=== PATIENT | male | born 1975 | race American Indian/Alaskan Native ===

== ENCOUNTER 2018-04-05 08:25 | Day surgery (SDC) | payer OTHER ==
[2018-04-05 09:19] LABS: BASO % 0.3 % (0.0-2.0); EOS # 0.1 K/uL (0.0-0.7); EOS % 2.5 % (0.0-4.0); HEMOGLOBIN 10.4 g/dL (12.0-18.0); LYMPH % 24.4 % (20.0-40.0); MEAN CELL VOLUME 79.1 fL (80.0-94.0); MEAN CORPUSCULAR HGB CONC 34.1 g/dL (33.0-37.0); MONO # 0.6 K/uL (0.0-0.8); MONO % 14.8 % (0.0-10.0); NEUT # 2.4 K/uL (1.8-7.0); NRBC % 0.1 % (0.0-2.0); RBC 3.87 Mil/uL (4.40-5.90); RED CELL DISTRIBUTION WIDTH 17.4 % (11.5-14.5); WHITE BLOOD COUNT 4.1 K/uL (4.8-10.8)
[2018-04-05 09:27] LABS: INR 1.2; PROTHROMBIN TIME 12.9 SECONDS (9.7-12.2)
[2018-04-05 09:40] LABS: CALCIUM 9.1 mg/dl (8.6-10.4)
[2018-04-05] MEDS ORDERED: Lidocaine 2% MPF (5 ml) Inj ONE ×2 (10:33)
[2018-04-05] MEDS ORDERED: Midazolam 2 MG/2 ML VIAL ONE (10:39)
[2018-04-05] MEDS ORDERED: Iodixanol 320 MG/ML 200 ML BOTTLE IV ONE (10:40)
[2018-04-05] MEDS ORDERED: Iodixanol 320 MG/ML 100 ML BOTTLE IV ONE (10:40)
[2018-04-07 12:55] VITALS: RESP 14; O2SAT 100
--- NOTE | 2018-04-10 23:30 | CARDCATH ---
Copied To: Geo Souza MD Attending MD: Geo Souza MD PROCEDURE DATE: 04/05/2018 PROCEDURES: 1. Left heart catheterization. 2. Coronary angiogram. CLINICAL INDICATIONS: 1. Angina. 2. Abnormal stress test. 3. Hypertension. 4. Hyperlipidemia. 5. Diabetes. 6. Chronic kidney disease, on hemodialysis. PERFORMING PHYSICIAN: Geo Souza MD DESCRIPTION OF PROCEDURE: After informed consent, the patient was prepped and draped in the usual sterile fashion. A 2% Lidocaine was given in the right groin for local anesthesia. Using micropuncture technique, a 6-Tunisian sheath was introduced into the right common femoral artery. JR4 6-Tunisian diagnostic catheter crossed into the left ventricle across the aortic valve. LV and diastolic pressure measured. Contrast injected and LV angiogram was done. Then the catheter was pulled back across the aortic valve. Gradient across the aortic valve was measured. Then the same catheter engaged into right coronary artery. Contrast injected and right coronary angiogram was done. Then the catheter was exchanged to JL4 6-Tunisian diagnostic catheter. The catheter was engaged into left main coronary artery. Contrast injected and left coronary angiogram was done. The patient tolerated the procedure well. 8 hours of supervision and 8 hours interpretation of the coronary imaging were done. FINDINGS: 1. Left main coronary artery is patent. 2. Left anterior descending and diagonal branches are patent. 3. Left circumflex and the obtuse marginal branches are patent. 4. Right coronary artery is dominant and patent. 5. LV ejection fraction is approximately 65%. No wall motion abnormalities noted. EDP is 18. No gradient across the aortic valve. IMPRESSION: 1. Normal coronaries. 2. Normal left ventricular systolic function. RECOMMENDATIONS: Recommend medical management. Geo Souza MD
== END 2018-04-05 15:43 | disposition home or self-care (01) ==
LOC: C.CATHLAB 08:25
PROVIDERS: ATTEND Internal Medicine Cardiovascular Disease
DX: I20.9 Angina pectoris, unspecified (principal); I12.0 Hypertensive chronic kidney disease with stage 5 chronic kidney disease or end stage renal disease; N18.6 End stage renal disease; E78.5 Hyperlipidemia, unspecified; E11.22 Type 2 diabetes mellitus with diabetic chronic kidney disease
CPT/HCPCS: 36415; 80048; 85025; 85610; 85730; 93458; 94770; 99152; 99153; C1760; C1769; C1887; C1893; J1644; J2250; J3010; Q9966; Q9967